=== PATIENT | male | born 1950 | race Caucasian/White ===

== ENCOUNTER → 2016-07-12 | Outpatient (CLI) | payer OTHER ==
[~2016-07-12] VITALS: Ht 180.3 cm; Wt 90.7 kg
[~2016-07-12] MED LIST: REGADENOSON 0.4 MG/5 ML DISP.SYRIN. IV ONE
--- NOTE | 2016-07-12 13:57 | RAD ---
APPROVED REPORT Test Type: Pharmacological Stress Nurse/Tech: Sandra Henry R.N. Test Indications: pre op clearance for aortic aneuysm Cardiac History: Family history, smoker Medications: See Electronic Medical Record Medical History: See Electronic Medical Record Resting ECG: S. nila Resting Heart Rate: 54 bpm Resting Blood Pressure: 124/67mmHg Pretest Chest Pain: No chest pain Nurse/Tech Notes S1S2, lungs clear Consent: The procedure was explained to the patient in lay terms. Informed consent was witnessed. Tyree eout was entered into [employer]. History and Stress Test performed by Sandra Henry R.N. Pharm. Details Pharmacologic stress testing was performed using 0.4mg per 5ml of regadenoson given intravenously ove r 7-10 seconds. Stress Symptoms Dyspnea POST EXERCISE Reason for Termination: Infusion complete Max HR: 84 bpm Max Blood Pressure: 122/58mmHg Blood Pressure response to exercise: Normal blood pressure response during stress. Chest Pain: No. Arrhythmia: No. ST Change: No. INTERPRETATION Stress EKG Conclusion: Post infusion of adenosine, there were TWI in the inferolateral segments. Imaging Protocol IMAGE PROTOCOL: Rest Tc-99m/stress Tc-99m 1 day Rest: Stress: Viability: Radiopharm.Tc99m [id number] Sestamibi [id number] 33.5mCi Duration 15min. 10min. Img Date 07/12/2016 07/12/2016 Inj-Img [id number]. 60min. Rest Admin Site:IV - Right HandAdministrator:MERCEDES Flores Stress Admin Site: IV - Right HandAdministrator: CASPER Hodge, ARRT (R)(N) STRESS DATA End Diast. Vol.125.0mlAv. Heart Rate76.0bpm End Syst. Vol.40.0mlCO Index BSA0.0L/min Myocardial Zfwn314.0gEject. Zlcrjrzs22.0% Stress Rates Pk. Fill Rate2.92EDV/secLVtime Pk. Fill 239.11msec Pk. Empty Rate2.94ESV/secLVtime Pk. Eject95.33msec 02/26 Pk. Fill1.55EDV/sec Stress Scores Regional WT1.00Summed WT10.00 Regional WM0.00Summed WM1.00 LV Perfusion There is a large sized, severe in intensity, fixed basal to distal inferoseptal and inferior defect s uggestive of prior infarct. There is minimal francisco-infarct reversibility. Given normal wall motion, th is may represent an artifact. Wall Motion Grossly normal wall motion. LV Perf. Quant 17 Seg. SSS7.00 17 Seg. SRS6.00 17 Seg. SDS3.00 Stress Defect Extent (% LAD)1.30Rest Defect Extent (% LAD)0.60Rev. Defect Extent (% LAD)0.00 Stress Defect Extent (% LCX) 17.50Rest Defect Extent (% LCX)6.30Rev. Defect Extent (% LCX)0.00 Stress Defect Extent (% RCA)23.30Rest Defect Extent (% RCA)23.30Rev. Defect Extent (% RCA)0.00 Stress Defect Extent (% CIRA)12.20Rest Defect Extent (% CIRA)9.80Rev. Defect Extent (% CIRA)0.00 Other Information Quality:Good Risk Assessment: Moderate Risk Conclusion 1. EKG changes with TWI in the infero-lateral results. 2. There is a large sized, severe in intensity, fixed basal to distal inferoseptal and inferior defec t suggestive of prior infarct. There is minimal francisco-infarct reversibility. Given normal wall motion, this may represent an artifact but less likely. 3. Low normal EF at > 50% 4. Moderate risk study. Recommendations Consider coronary angiography given high risk surgery planned.
== END | disposition home or self-care (01) ==
LOC: NM 07:03
PROVIDERS: ATTEND Internal Medicine
DX: Z01.818 Encounter for other preprocedural examination (principal)
CPT/HCPCS: 78452; 93017; 96374; 96375; 96376; A9500; J2785